=== PATIENT | female | born 1975 | race Caucasian/White ===

== ENCOUNTER 2020-08-07 13:49 | Outpatient (CLI) | payer OTHER, SELFPAY ==
--- NOTE | ~2020-08-07 | XR_ITS ---
EXAMINATION: XR heel LT min 2V DATE: 08/07/2020 14:12 INDICATION: Left heel pain. TECHNIQUE: 2 views of left calcaneus were obtained. COMPARISON: None. FINDINGS: Bone alignment is normal. No fracture. 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 IMPRESSION: 1. No fracture. Reviewed, dictated and finalized at location A. S INSTALLER TECHNICIAN IMPRESSION: 1. No fracture.
== END 2020-08-07 13:50 | disposition home or self-care (01) ==
LOC: ANHIMG 13:55
PROVIDERS: PCP Nurse Practitioner Family; Visit Provider Nurse Practitioner Family
DX: M79.672 Pain in left foot (principal)
CPT/HCPCS: 73650

== ENCOUNTER 2021-03-28 15:10 | Emergency (ER) | payer OTHER, SELFPAY ==
--- NOTE | ~2021-03-28 | XR_ITS ---
EXAMINATION: XR chest 2V DATE: 03/28/2021 15:37 INDICATION: Tachycardia. TECHNIQUE: Frontal and lateral views of the chest were obtained. COMPARISON: None. FINDINGS: There is mild atelectasis at left lung base. No pleural effusion or pneumothorax. The heart size is normal. IMPRESSION: 1. Mild atelectasis at left lung base. Reviewed, dictated and finalized at location A.
--- NOTE | 2021-03-28 15:11 | ECG_ITS ---
Measurements Intervals [place] Rate: 93 P: 34 UT: 157 QRS: 7 QRSD: 80 T: 17 QT: 307 QTc: 383 Interpretive Statements SINUS RHYTHM WITH SINUS ARRHYTHMIA NORMAL ECG Electronically Signed On 03-28-2021 19:29:52 CDT by Dustin Chaney D.O.
[2021-03-28 15:16] VITALS: BP 117/83; PULSE 93; RESP 16; TEMP 36.7; O2SAT 100
[2021-03-28 15:30] LABS: Basophils Percent Auto 0.5 % (0.2-1.2); Eosinophils Absolute Auto 0.1 K/mm3 (0-0.3); Eosinophils Percent Auto 1.9 % (0-4.4); Hematocrit 38.3 % (37.0-47.0); Hemoglobin 12.9 g/dL (12.0-15.0); Immature Granulocyte Absolute 0.01 K/mm3 (0.00-0.031); Immature Granulocyte Percent A 0.3 % (0-0.5); Lymphocytes Absolute Auto 1.49 K/mm3 (0.9-3.2); Lymphocytes Percent Auto 40.2 % (18.3-44.2); Mean Corpuscular HGB Conc 33.7 g/dl (32-36); Mean Corpuscular Volume 89.1 fl (80-100); Mean Platelet Volume 8.6 fl (7.4-10.4); Monocytes Absolute Auto 0.4 K/mm3 (0.1-0.6); Monocytes Percent Auto 11.3 % (2.6-8.5); Neutrophils Absolute Auto 1.7 K/mm3 (1.3-6.7); Neutrophils Percent Auto 45.8 % (45.5-73.1); Platelet Count Result 126 k/mm3 (150-375); Red Cell Distribution Width 13.6 % (11.5-14.5); White Blood Count 3.7 K/mm3 (4.5-10.0)
[2021-03-28 15:40] LABS: Anion Gap 5 mmol/L (8-16); Blood Urea Nitrogen 13 mg/dL (7-17); Calcium 8.8 mg/dL (8.4-10.2); Carbon Dioxide 27 mmol/L (22-30); Chloride 111 mmol/L (98-107); Estimated CRCL calculation 84 ml/min; Estimated Glomerular Filt Rate > 60; Glucose 93 mg/dL (65-105); INR 0.9; Potassium 3.8 mmol/L (3.4-5.0); Prothrombin Time 13.1 Seconds (11.1-14.7); Sodium 143 mmol/L (137-145)
[2021-03-28 15:41] LABS: Partial Thromboplastin Time 23.7 SECONDS (22.3-36.8)
[2021-03-28 15:56] LABS: Troponin I < 0.012 ng/mL (0.000-0.034)
[2021-03-28 17:20] VITALS: BP 115/93; PULSE 82; RESP 19; O2SAT 100
[2021-03-28 17:21] VITALS: PULSE 82
--- NOTE | 2021-03-28 17:41 | ED.GENADULT ---
HPI - General Adult General Chief complaint: Chest Pain Stated complaint: Chest Flutter Time Seen by Provider: 03/28/21 17:27 Source: patient and family Mode of arrival: ambulatory Limitations: no limitations History of Present Illness HPI narrative: Patient is 45 years old white female presents with palpitation and chest tightness off and on over the last 2 to 3 hours. Patient works at [employer]. Long hours, sleeps 4 to 5-hour on average over the last few months, currently moving to another house, trouble sleeping. Patient does not take medicine at home, does not drink or smoke or uses drugs. Patient did not have any palpitation since arrival to our emergency room. Related Data Home Medications Medication Instructions Recorded Confirmed cholecalciferol (vitamin D3) 125 mcg PO DAILY 03/28/21 famotidine [Pepcid] 20 mg PO BID 03/28/21 galcanezumab-gnlm [Emgality Pen] mg SUBCUT 03/28/21 rimegepant [Nurtec ODT] mg 03/28/21 Allergies Allergy/AdvReac Type Severity Reaction Status Date / Time carbamazepine [From Tegretol] Allergy Other Verified 03/28/21 17:18 meperidine [From Demerol] Allergy Hives Verified 03/28/21 17:17 Sulfa (Sulfonamide Allergy Rash Verified 03/28/21 17:18 Antibiotics) Review of Systems Review of Systems: Narrative: CONSTITUTIONAL: Denies fever, chills, or sweats. EYES: Denies visual changes, redness, or discharge. ENT: Denies rhinorrhea, congestion, sore throat, or otalgia. CARDIOVASCULAR: Denies chest pain, palpitations, or edema. RESPIRATORY: Denies cough or dyspnea. GASTROINTESTINAL: Denies abdominal pain, nausea, vomiting, or diarrhea. GENITOURINARY: Denies dysuria or hematuria. SKIN: Denies rash or itching. MUSCULOSKELETAL: Denies back pain, joint pain, or myalgia. NEUROLOGIC: Denies headache, numbness, or weakness. PSYCHIATRIC: Anxiety and depression Exam Narrative: Exam Narrative: General appearance: Well-developed, well-nourished, at the bedside Skin: Normal color Head: Normocephalic, nontraumatic Eyes: Clear conjunctiva ENT: Oropharynx normal, ears normal, nose normal Neck: Supple, nontender Chest and respiratory: Airway patent, no respiratory distress, no accessory muscle use Heart: Regular rate/rhythm Abdomen: Soft, nontender, no organomegaly, quiet bowel sounds Vascular: Normal peripheral pulses, normal capillary refill. Musculoskeletal: Normal range of motion, nontender back Neurologic: Alert and oriented ?3, AMBULANCE DISPATCHER is normal as tested, no gross motor deficit Course Course Emergency Course: Resolved Vital Signs Vital signs: Vital Signs Temperature 36.7 C 03/28/21 15:16 Pulse Rate 93 03/28/21 15:16 Respiratory Rate 16 03/28/21 15:16 Blood Pressure 117/83 03/28/21 15:16 Pulse Oximetry 100 03/28/21 15:16 Temperature 36.7 C 03/28/21 15:16 Pulse Rate 82 03/28/21 17:21 Respiratory Rate 19 03/28/21 17:20 Blood Pressure 115/93 H 03/28/21 17:20 Pulse Oximetry 100 03/28/21 17:20 Medical Decision Making MDM Narrative Medical decision making narrative: Palpitation, chest tightness, anxiety-like symptoms. Labs, ordered. Further plan to follow Differential Diagnosis Differential Diagnosis: Anxiety-like symptoms, palpitation, chest pain, insomnia Vital Signs Vital Signs: Vital Signs Temperature 36.7 C 03/28/21 15:16 Pulse Rate 93 03/28/21 15:16 Respiratory Rate 16 03/28/21 15:16 Blood Pressure 117/83 03/28/21 15:16 Pulse Oximetry 100 03/28/21 15:16 Temperature 36.7 C 03/28/21 15:16 Pulse Rate 82 03/28/21 17:21 Respiratory Rate 19 03/28/21 17:20 Blood Pressure 115/93 H 03/28/21 17:20 Pulse Oximetry 100 03/28/21 17:20
[2021-03-28 17:59] VITALS: BP 110/78; PULSE 75; RESP 20; O2SAT 97
== END 2021-03-28 18:00 | disposition home or self-care (01) ==
PROVIDERS: Emergency Provider Emergency Medicine; PCP Nurse Practitioner Family
DX: R07.9 Chest pain, unspecified (principal); R00.2 Palpitations; F41.9 Anxiety disorder, unspecified
CPT/HCPCS: 36415; 71046; 80048; 84484; 85025; 85610; 85730; 93005; 99284

== ENCOUNTER 2021-06-21 10:22 | Outpatient (CLI) | payer OTHER, SELFPAY ==
--- NOTE | ~2021-06-21 | MR_ITS ---
EXAMINATION: MR brain/brain stem wo con DATE: 06/21/2021 11:16 INDICATION: Severe headaches with increasing frequency. TECHNIQUE: Magnetic resonance imaging (MRI) of the brain and brainstem was performed without intraven ous contrast. Sequences included sagittal and axial T1-weighted FSE, axial diffusion-weighted FS EPI, axial T2*-weighted GRE, axial T2-weighted FLAIR Propeller, and axial T2-weighted Propeller. Apparent diffusion coefficient (ADC) maps were created. COMPARISON: None. FINDINGS: There is chronic encephalomalacia in left parietal lobe with overlying craniotomy. There is no intracranial hemorrhage, acute infarction, or abnormal intracranial mass lesion. The ventricles a re normal in size. There is mucosal thickening in the paranasal sinuses. The orbits are normal. The m astoid air cells are normal. There is focal thickening of the outer cortex of right frontal bone, con sistent with an osteoma. IMPRESSION: 1. Chronic encephalomalacia in left parietal lobe. Reviewed, dictated and finalized at location A.
== END 2021-06-21 10:23 | disposition home or self-care (01) ==
PROVIDERS: PCP Nurse Practitioner Family; Visit Provider Psychiatry & Neurology Neurology
DX: D64.9 Anemia, unspecified (principal); G93.89 Other specified disorders of brain
CPT/HCPCS: 70551

== ENCOUNTER 2022-04-19 01:32 | Day surgery (SDC) | payer OTHER, SELFPAY ==
[2022-04-08 14:05] VITALS: BMI 35.9
[2022-04-19 12:05] VITALS: BP 129/87; PULSE 83; RESP 18; TEMP 36.2; O2SAT 100; BMI 35.3
[2022-04-19] MEDS: LACTATED RINGERS 1,000 ML 150 ML IV CONT (12:08)
--- NOTE | 2022-04-19 12:41 | PM.HPGS ---
History of Present Illness History of Present Illness Consent: Risks, benefits, and alternatives have been discussed and questions answered. Patient agrees to proceed with procedure. Chief complaint: dysphagia Narrative: Narda Avery is a 46 year old female who ?has noticed increasingly that food will stick when she swallows.? It has gotten to the point were almost all solid food seems to hang up in the midchest.? This is accompanied by discomfort and frequent? hiccups.? She has long history of having acid reflux for which she uses [id number] Pepcid.? She has never been prescribed anything else for that.? Her weight is stable.? She denies nausea or vomiting. Review of Systems Review of Systems: All systems reviewed & are unremarkable except as noted in HPI and below PMFSH Surgical History Surgical History H/O craniotomy H/O: hysterectomy Family History Family History Father Hypertension Cerebrovascular accident Social History Social History Smoking status: Former smoker Tobacco type: cigarettes and e-cigarettes/vaping Alcohol intake: current Alcohol use details: Rarely Substance use: former Substance use type: marijuana Living arrangements: alone Spiritual care concerns: No Meds Home Medications and Allergies Home Medications Medication Instructions Recorded Confirmed Type cholecalciferol (vitamin D3) 125 125 mcg PO DAILY 03/28/21 04/19/22 History mcg (5,000 unit) tablet famotidine 20 mg tablet (Pepcid) 20 mg PO BID 03/28/21 04/19/22 History galcanezumab-gnlm 120 mg/mL See Rx Instructions .Route .COMPLEX 03/28/21 04/19/22 History subcutaneous pen injector (Emgality Pen) rimegepant 75 mg disintegrating 75 mg PO DAILY 03/28/21 04/19/22 History tablet (Nurtec ODT) gabapentin 300 mg capsule See Rx Instructions .Route 03/17/22 04/19/22 Rx .COMPLEX #120 caps phenytoin sodium extended 100 mg See Rx Instructions .Route 03/22/22 04/19/22 Rx capsule .COMPLEX #120 caps atorvastatin 20 mg tablet 1 tablet PO DAILY 04/08/22 04/19/22 History clonazepam 0.25 mg disintegrating 0.25 mg PO BID PRN Anxiety 04/08/22 04/19/22 History tablet metoprolol succinate 25 mg 1 tablet PO DAILY 04/08/22 04/19/22 History tablet,extended release 24 hr Allergies Allergy/AdvReac Type Severity Reaction Status Date / Time trimethoprim Allergy Unknown Unknown Verified 04/19/22 12:03 carbamazepine [From Tegretol] Allergy Other Verified 04/19/22 12:03 meperidine [From Demerol] Allergy Hives Verified 04/19/22 12:03 Sulfa (Sulfonamide Allergy Rash Verified 04/19/22 12:03 Antibiotics) Vital Signs Vital Signs - 24 hr 04/19/22 12:05 Temperature 36.2 C L Pulse Rate 83 Respiratory Rate 18 Blood Pressure 129/87 Pulse Oximetry 100 Oxygen Delivery Room Air Exam Const: General: alert Orientation/consciousness: patient oriented x3 Resp: Auscultation: clear to auscultation bilaterally Cardio: Rhythm: regular rhythm GI: GI Palp: Yes Soft to palpation and No Tenderness to palpation present (GI) Neuro: General: patient oriented x3 Assessment and Plan Assessment and plan (1) Dysphagia: Code(s): R13.10 - Dysphagia, unspecified Status: Acute Assessment and Plan: EGD with possible biopsy or dilatation or cautery.
--- NOTE | 2022-04-19 12:49 | WPDANESEPPF ---
Anes - Initial Pre Proc Eval Procedure: Operation Date: 04/19/22 13:00 Proposed Procedures p Esophagogastroduodenoscopy - Darren Gamboa MD Date/Time: 04/19/22 12:49 Surgeon: Darren Gamboa MD Pre Op Diagnosis: dysphagia Patient Data Age: 46 Gender: F Height: 1.57 m Weight: 87.7 kg Last Vital Signs Temp 97.2 F L 04/19/22 12:05 Pulse 83 04/19/22 12:05 Resp 18 04/19/22 12:05 BP 129/87 04/19/22 12:05 Pulse Ox 100 04/19/22 12:05 O2 Del Method Room Air 04/19/22 12:05 Allergies Allergy/AdvReac Type Severity Reaction Status Date / Time trimethoprim Allergy Unknown Unknown Verified 04/19/22 12:03 carbamazepine [From Tegretol] Allergy Other Verified 04/19/22 12:03 meperidine [From Demerol] Allergy Hives Verified 04/19/22 12:03 Sulfa (Sulfonamide Allergy Rash Verified 04/19/22 12:03 Antibiotics) Home Medications Medication Instructions Recorded Confirmed Type cholecalciferol (vitamin D3) 125 125 mcg PO DAILY 03/28/21 04/19/22 History mcg (5,000 unit) tablet famotidine 20 mg tablet (Pepcid) 20 mg PO BID 03/28/21 04/19/22 History galcanezumab-gnlm 120 mg/mL See Rx Instructions .Route .COMPLEX 03/28/21 04/19/22 History subcutaneous pen injector (Emgality Pen) rimegepant 75 mg disintegrating 75 mg PO DAILY 03/28/21 04/19/22 History tablet (Nurtec ODT) gabapentin 300 mg capsule See Rx Instructions .Route 03/17/22 04/19/22 Rx .COMPLEX #120 caps phenytoin sodium extended 100 mg See Rx Instructions .Route 03/22/22 04/19/22 Rx capsule .COMPLEX #120 caps atorvastatin 20 mg tablet 1 tablet PO DAILY 04/08/22 04/19/22 History clonazepam 0.25 mg disintegrating 0.25 mg PO BID PRN Anxiety 04/08/22 04/19/22 History tablet metoprolol succinate 25 mg 1 tablet PO DAILY 04/08/22 04/19/22 History tablet,extended release 24 hr Patient hx anesthesia problems: none Family hx anesthesia problems: none Results Review: All pre-operative results and documents have been reviewed as part of the pre-operative evaluation. [facility] Surgical History Surgical History H/O craniotomy H/O: hysterectomy Family History Family History Father Hypertension Cerebrovascular accident Social History Social History Smoking status: Former smoker Tobacco type: cigarettes and e-cigarettes/vaping Alcohol intake: current Alcohol use details: Rarely Substance use: former Substance use type: marijuana Living arrangements: alone Spiritual care concerns: No Anes - Eval Final PreProcedure Day of Procedure 04/19/22 12:49 Patient weight: obese Heart: regular rate and rhythm Lungs: clear to auscultation Airway: Mallampati scale class III Neurological: alert and oriented Last oral intake: >/= 8 hours ASA classification: III Emergent: no Anesthetic plan: proceed Anesthesia type and monitoring: general GIVS and standard monitoring Results Review: All pre-operative results and documents have been reviewed as part of the pre-operative evaluation. Informed Consent: The patient's anesthetic plan and its attendant risks and benefits were discussed with the patient/family/POA. Questions were solicited and answers provided to the satisfaction of the patient/family/POA.
[2022-04-19 13:15] VITALS: BP 98/55; PULSE 80; RESP 17; O2SAT 100
[2022-04-19 13:25] VITALS: BP 100/96; PULSE 81; RESP 21; O2SAT 100
[2022-04-19 13:35] VITALS: BP 117/73; PULSE 78; RESP 28; O2SAT 100
== END 2022-04-19 14:02 | disposition home or self-care (01) ==
PROVIDERS: PCP Nurse Practitioner Family; Visit Provider Internal Medicine Gastroenterology
PROC: 0DJ08ZZ Inspection of Upper Intestinal Tract, Via Natural or Artificial Opening Endoscopic (ICD-10-PCS; CPT 43235; principal; 2022-04-19 13:00)
DX: R13.19 Other dysphagia (principal); K21.00 Gastro-esophageal reflux disease with esophagitis, without bleeding; K22.2 Esophageal obstruction; K44.9 Diaphragmatic hernia without obstruction or gangrene; F12.90 Cannabis use, unspecified, uncomplicated; Z87.891 Personal history of nicotine dependence; E66.9 Obesity, unspecified; Z68.35 Body mass index [BMI] 35.0-35.9, adult
CPT/HCPCS: 43239; 43249; 88305; 88313; C1726; J2704; J7120